=== PATIENT | female | born 1980 | race Caucasian/White ===

== ENCOUNTER 2021-11-10 14:10 | Emergency (ER) | payer MEDICARE, MEDICAID ==
[2021-11-11 13:23] LABS: SARS-CoV-2 PCR by NAA DETECTED (NotDetected)
== END 2021-11-10 14:47 | disposition home or self-care (01) ==
LOC: CSHERS 14:10
DX: U07.1 COVID-19 (principal); F17.210 Nicotine dependence, cigarettes, uncomplicated
CPT/HCPCS: U0003; U0005; 99283

== ENCOUNTER 2024-08-07 14:06 | Emergency (ER) | payer OTHER | END 2024-08-07 15:19 | disposition home or self-care (01) | LOC: CSHERS 14:06 | DX: L03.011 Cellulitis of right finger (principal) | CPT/HCPCS: 99283 ==

== ENCOUNTER 2025-03-14 21:15 | Emergency (ER) | payer OTHER ==
[2025-03-14] MEDS ORDERED: Morphine 4 MG/ML VIAL ONE ×2 (22:48→23:32)
[2025-03-14] MEDS ORDERED: Ondansetron PF 4 MG/2 ML Vial ONE (22:48)
[2025-03-14] MEDS ORDERED: Ketorolac Tromethamine 30 MG (1 mL) VIAL ONE (22:48)
[2025-03-14 23:06] LABS: #Basophils 0.04 10x3/uL (0.0-0.2); #Eosinophils 0.07 10x3/uL (0.0-0.5); #Monocytes 0.56 10x3/uL (0.0-1.1); %Basophils 0.5 % (0.0-2.0); %Eosinophils 0.9 % (0.0-6.0); %Lymphocytes 28.5 % (18.0-47.0); %Monocytes 6.9 % (0.0-10.0); Hematocrit 34.9 % (34.9-44.5); Hemoglobin 12.3 g/dL (12.0-15.5); Mean Corpuscular HGB CONC 35.2 g/dL (32.0-36.0); Mean Corpuscular Hemoglobin 29.9 pg (27.0-33.0); Mean Corpuscular Volume 84.9 fL (81.6-98.3); Mean Platelet Volume 9.2 fL (7.4-10.4); Platelet Count 280 10x3/uL (150-450); RBC Distribution Width 12.5 % (11.5-14.5); Red Blood Cell (RBC) Count 4.11 10x6/uL (3.90-5.03)
[2025-03-14 23:20] LABS: BHCG - Serum Negative (NEGATIVE); Pregs Control Background? CLEAR/WHITE (CLR/WHITE); Pregs Control Bar Appear? YES (CONTROL BAR)
[2025-03-14 23:26] LABS: ALT (SGPT) 12 U/L (Less than 34); AST (SGOT) 19 U/L (11-34); Albumin 4.4 g/dL (3.1-4.5); Alkaline Phosphatase 48 U/L (40-110); Anion Gap 10 mmol/L (10-20); BUN (Urea Nitrogen) 21 mg/dL (7.0-18.7); Bilirubin, Total 0.4 mg/dL (0.3-1.2); Calc. Creatinine Clearance 0 mL/min (70-130); Calcium 8.9 mg/dL (7.8-10.44); Carbon Dioxide 28 mmol/L (22-29); Chloride 103 mmol/L (98-107); Estimated GFR 76; Globulin 2.9 g/dL (2.4-3.5); Glucose 86 mg/dL (70-105); Lipase 12 U/L (8-78); Potassium 3.5 mmol/L (3.5-5.1); Protein, Total 7.3 g/dL (6.0-8.3); Sodium 137 mmol/L (136-145)
[2025-03-14] MEDS ORDERED: Acetaminophen 325 MG TAB ONE (23:37)
== END 2025-03-15 00:30 | disposition home or self-care (01) ==
LOC: CSHERS 21:15
DX: R10.9 Unspecified abdominal pain (principal); F17.290 Nicotine dependence, other tobacco product, uncomplicated
CPT/HCPCS: 80053; 83690; 84703; 85025; 96374; 96375; 96376; 99284; J1885; J2270; J2405; 36415

== ENCOUNTER 2025-05-31 15:04 | Emergency (ER) | payer OTHER, MEDICAID ==
[~2025-05-31 15:04] MED LIST: Iopamidol 300 61% 100 ML VIAL FS ONE
[2025-05-31 16:59] LABS: #Basophils Less than 0.03 10x3/uL (0.0-0.2); #Eosinophils 0.08 10x3/uL (0.0-0.5); #Monocytes 0.48 10x3/uL (0.0-1.1); #Neutrophils 3.42 10x3/uL (1.5-8.4); %Basophils 0.4 % (0.0-2.0); %Eosinophils 1.5 % (0.0-6.0); %Lymphocytes 26.6 % (18.0-47.0); %Monocytes 8.8 % (0.0-10.0); %Neutrophils 62.5 % (40.0-75.0); Hematocrit 34.7 % (34.9-44.5); Hemoglobin 12.1 g/dL (12.0-15.5); Mean Corpuscular Hemoglobin 30.0 pg (27.0-33.0); Mean Corpuscular Volume 86.1 fL (81.6-98.3); Platelet Count 258 10x3/uL (150-450); Red Blood Cell (RBC) Count 4.03 10x6/uL (3.90-5.03); White Blood Cell (WBC) Count 5.46 10x3/uL (3.5-10.5)
[2025-05-31] MEDS ORDERED: Droperidol 5 MG/2 ML VIAL ONE (17:00)
[2025-05-31 17:14] LABS: INR-International Normal Ratio 1.0; PTT 26.4 sec (22.0-33.0); Prothrombin Time 10.6 sec (9.5-12.1)
[2025-05-31 17:18] LABS: ALT (SGPT) 12 U/L (Less than 34); AST (SGOT) 22 U/L (11-34); Albumin 4.3 g/dL (3.1-4.5); Alkaline Phosphatase 49 U/L (40-110); Anion Gap 11 mmol/L (10-20); BUN (Urea Nitrogen) 13 mg/dL (7.0-18.7); Bilirubin, Total 0.6 mg/dL (0.3-1.2); Calc. Creatinine Clearance 0 mL/min (70-130); Calcium 9.2 mg/dL (7.8-10.44); Carbon Dioxide 28 mmol/L (22-29); Chloride 104 mmol/L (98-107); Globulin 3.0 g/dL (2.4-3.5); Glucose 85 mg/dL (70-105); Lipase 7 U/L (8-78); Potassium 3.5 mmol/L (3.5-5.1); Sodium 139 mmol/L (136-145)
[2025-05-31] MEDS ORDERED: Ketorolac Tromethamine 30 MG (1 mL) VIAL ONE ×2 (18:03→18:05)
[2025-05-31 18:08] LABS: Glucose, Urine (Dipstick) Normal (Negative); Leukocyte 25 (Negative); Protein, Urine (Dipstick) 15 mg/dl (Neg-Trace); Specific Gravity, Urine 1.015 (1.005-1.030)
[2025-05-31 18:19] LABS: Bacteria/HPF Rare-Few HPF (None Seen); CAUTI Indications for Culture Pelvic or flank pain; Mucous/LPF Rare LPF (<2+); RBC/HPF 0-3 HPF (0-3)
[2025-05-31 18:20] LABS: Urine Culture Reflex No No
== END 2025-05-31 19:49 | disposition home or self-care (01) ==
LOC: CSHERS 15:04
DX: R10.9 Unspecified abdominal pain (principal); F17.290 Nicotine dependence, other tobacco product, uncomplicated
CPT/HCPCS: 74177; 80053; 81001; 83605; 83690; 85025; 85610; 85730; 87040; J1790; J1885; 36415; 96361; 96374; 96375; Q9967